=== PATIENT | male | born 1955 | race Caucasian/White ===

== ENCOUNTER 2020-05-30 23:33 | Inpatient (IN) | payer MEDICARE, BC, SELFPAY ==
--- NOTE | 2020-05-30 23:30 | DI.CT_ITS ---
EXAM: CT ABDOMEN PELVIS W CLINICAL HISTORY: gi bleed TECHNIQUE: Imaging Protocol: Axial computed tomography images with coronal and sagittal reformatted images were created and reviewed CONTRAST MATERIAL: Intravenous: Omnipaque 350 Contrast volume:100 mL Oral: No COMPARISON: No exams were available for comparison FINDINGS: ABDOMEN: Lung Bases: There is a large bulla in the right lung base. It measures 6.9 cm in diameter. There is a small hiatal hernia. Liver: Normal density. No measurable mass. Portal, Superior Mesenteric, and Splenic Veins: Unremarkable. Gallbladder and Biliary Tract: No radiodense calculus or dilation. Pancreas: Normal density, no abnormal calcifications or inflammatory process. Spleen: Normal. Adrenals: There are small bilateral adrenal nodules. The right adrenal nodule measures 1.2 cm. The left adrenal nodule also measures 1.2 cm. These likely reflect adenomas. Kidneys: Normal size, contour and axis. No radiodense stones or obstructive uropathy. There is a 1.3 cm simple cyst in the left kidney. No further workup is recommended. Abdominal Aorta: Abdominal portion non-dilated. Mild atherosclerosis. Bowel: No obstruction or bowel wall thickening. Appendix is unremarkable. There is diverticulosis see n in the descending and sigmoid colon. There is mild increased stranding in the pericolonic tissues at the junction of the descending and sigmoid colons. This may represent a mild acute diverticulitis . No abscess or free air. Peritoneal Cavity: No ascites, collection or mesenteric inflammatory response. No free air. Lymph Nodes: Within normal limits. Bones: Within normal limits for the patient's age. Soft Tissues: There are moderate size bilateral fat containing inguinal hernia. The most inferior im ages show fluid in the scrotal sacs likely reflecting bilateral hydroceles. PELVIS: Bladder: Incompletely distended. This limits evaluation of the urinary bladder. The apparent mild b ladder wall thickening may be due to incomplete distension versus chronic bladder outlet obstruction secondary to the enlarged prostate gland. Cystitis cannot be entirely excluded. Please correlate cl inically. Reproductive Organs: Enlarged prostate gland which impinges upon the base of the urinary bladder. Lymph Nodes: Within normal limits. Bones: Degenerative changes in the lumbar spine. IMPRESSION: 1. Diverticulosis of the descending and sigmoid colon. Mild increased stranding seen at the junction of the descending and sigmoid colons suggesting mild acute diverticulitis. No abscess or free air. 2. Enlarged prostate gland. RADIATION DOSE DELIVERED: 1,033.5mGy.cm Total DLP DATA REPOSITORY: All CT scans at this facility are submitted to the National Radiology Data Registry (NRDR) Dose Index Registry (DIR) with the [employer] (ACR). RADIATION OPTIMIZATION: All CT scans at this facility use at least one of these dose optimization te chniques: automated exposure control; mA and/or kV adjustment per patient size (includes targeted exa ms where dose is matched to clinical indication); or iterative reconstruction.
--- NOTE | 2020-05-30 23:52 | ED.GENADUL_ITS ---
Discharge Plan Disposition Patient Disposition: [facility] Condition: Good Discharge Details Chief Complaint: GI Bleed Clinical Impression: Acute GI bleeding Primary Care Provider: Puma Smallwood ED Provider: Baltazar Motley Home Meds and New Rx's Prescriptions: No Action No Known Home Meds RF: 0 Medical Decision Making 65-year-old male who denies any significant aside for what appears to be a colonoscopy back in 2016 which demonstrated mild colitis in the rectum itself. He presents today for GI bleeding. Patient states that over the last 3 days he has had daily episodes of bright red blood and slightly maroon-colored blood per rectum with bowel movements mild diarrhea. However this evening he felt notable turning and uneasiness in his lower abdomen, and then subsequently had 4-5 episodes of blood from his rectum. He denies any significant pain. He did feel notably lightheaded during this episode, and feels that he may have passed out. He did not hit his head though, he awoke sitting on the toilet, with no trauma. He does not take any blood thinners. He does admit to eating a fair bit of cranberries and beets as of late but feels that this is unrelated, as he stopped using those a few days ago and his symptoms of persist. Patient has no other complaints at this time. No other modifying factors. He has not seen a family doctor or doctor since his colonoscopy. Physical exam is unremarkable, no abdominal tenderness. Rectal exam shows no active bleeding. Patient is tachycardic, I am concerned at this time for sigmoid or rectal colitis causing the bleeding, potentially secondary to ulcerative colitis, but uncertain otherwise. Out of an abundance of precaution there is still concern for upper GI bleed, will start Protonix and famotidine, we will type and screen, start IV fluids, evaluate for need for PRBCs. Patient will need admission for screening colonoscopy and observation. 1:27 AM Blood work is returned, white count of 21, hemoglobin stable at 14.4, mild left shift, PT PTT INR normal, lactate elevated at 2.9. Repeat exam continues to demonstrate no abdominal tenderness, symptoms clinically inconsistent with an ischemic gut picture at this time. Creatinine slightly up at 1.4, BUN 20, anion gap 11.7, EKG unremarkable. CT scan shows evidence of colitis, mild diverticulitis as well, suspect an infectious versus ulcerative etiology. Discussed the case with Dr. Crabtree, no indication for emergent surgical management at this time. We will start Zosyn, continue to rehydrate, blood pressure notably stable, heart rate improved after a liter of fluid. Patient will be admitted to the floor. I will place bridging orders. I have extensively reviewed the treatment plan with the patient. I have addressed all patient concerns at this time. I have also discussed the plan with the admitting physician and they agree with the current assessment and plan and have agreed to assume responsibility for the patient. All parties demonstrate verbal understanding and agreement with our assessment and plan at this time. The documentation in this chart was dictated using [employer] dictation software. Ple ase excuse any dictation errors. I did contact the patient's , Jan, and discussed the case with her. She agrees with assessment and plan. All questions answered. FINDINGS: Lungs: There is large pneumatocele within the right lung base. Lung bases otherwise clear. Mediastinal space: There is small hiatal hernia. Liver: Unremarkable. No mass. Gallbladder and bile ducts: Unremarkable. No calcified stones. No ductal dilation. Pancreas: Unremarkable. No ductal dilation. Spleen: Unremarkable. No splenomegaly. Adrenal glands: Slight thickening of the adrenal glands without discrete nodule or mass. Kidneys and ureters: Within the inferior interpolar region of the left kidney there is exophytic 1.2 cm hypodensity with simple fluid attenuation consistent with simple cyst. Subcentimeter hypodensity within the left renal midpole is too small to characterize, statistically most likely additional cyst, no imaging follow-up necessary. No hydronephrosis. Ureters are normal in course and caliber. Stomach and bowel: There is attenuating debris within the stomach, correlate with recent ingestion, with air debris level in the stomach which is mildly distended. There is mild diverticulosis of the left hemicolon. There is segment of colonic mural thickening involving the proximal sigmoid colon with mild pericolonic inflammatory stranding. No significant pericolonic fluid collection. No focal mural thickening of the right hemicolon with few scattered colonic air-fluid levels, possibly representing colonic ileus or diarrheal illness. No bowel obstruction. No focal abnormality of the small bowel. Appendix: Within normal limits. Intraperitoneal space: No free air. No significant fluid collection. Vasculature: There are mild scattered atherosclerotic calcifications of the abdominal aorta and its major branches, no abdominal aortic aneurysm. Lymph nodes: No pathologically enlarged lymph nodes. Urinary bladder: Bladder is incompletely distended mildly limiting evaluation with mild diffuse bladder wall thickening. Reproductive: Prostate gland is enlarged measuring approximately 6.2 cm transverse by 4.8 cm AP. Bones/joints: Mild degenerative changes of the lower lumbar spine. No acute fracture. Soft tissues: There are small to moderate bilateral fat containing inguinal hernias. IMPRESSION: 1. Mild diverticulosis of the left hemicolon with segment of colonic mural thickening and pericolonic inflammatory stranding involving the proximal sigmoid colon. Correlate clinically for symptoms of acute colitis/diverticulitis. 2. Prostatomegaly. 3. Bladder is incompletely distended mildly limiting evaluation with mild diffuse bladder wall thickening. May represent changes of underdistention versus chronic bladder outlet obstruction versus cystitis. Correlate clinically. Thank you for allowing us to participate in the care of your patient. Dictated and Authenticated by: Harry Hawk MD 05/31/2020 12:47 AM Eastern Time ([place] & [place]) HPI General Date/Time Provider Initiated Documentation: 05/30/20 23:37 . HPI Narrative: 65-year-old male who denies any significant aside for what appears to be a colonoscopy back in 2015 which demonstrated mild colitis in the rectum itself. He presents today for GI bleeding. Patient states that over the last 3 days he has had daily episodes of bright red blood and slightly maroon-colored blood per rectum with bowel movements mild diarrhea. However this evening he felt notable turning and uneasiness in his lower abdomen, and then subsequently had 4-5 episodes of blood from his rectum. He denies any significant pain. He did feel notably lightheaded during this episode, and feels that he may have passed out. He did not hit his head though, he awoke sitting on the toilet, with no trauma. He does not take any blood thinners. He does admit to eating a fair bit of cranberries and beets as of late but feels t hat this is unrelated, as he stopped using those a few days ago and his symptoms of persist. Patient has no other complaints at this time. No other modifying factors. He has not seen a family doctor or doctor since his colonoscopy. Related Data Home Medications Medication Instructions Recorded Confirmed Unknown [No Known Home Meds] 05/31/20 05/31/20 Allergies Allergy/AdvReac Type Severity Reaction Status Date / Time codeine AdvReac Mild headache Unverified 04/17/16 11:41 Review of Systems All systems reviewed & are unremarkable except as noted in HPI and below PFSH Medical History Hematochezia Hypertension not currently on medications Tobacco use quite in 2012 Surgical History Colonoscopy - IV Sedation (04/17/16) Social History Smoking/Tobacco Use Status: Former Tobacco Use Smoking risk assessment performed?: Yes Alcohol Intake: current Alcohol Intake frequency: holidays/special occasions only Drug use: Never Substance use type: does not use Do you feel safe at home: Yes Do you feel safe in your relationship?: Yes Exam Narrative Exam Narrative: 1.Const: Well-nourished, Well-developed, appearing stated age 2.Eyes: PERRL, no conjunctival injection, and symmetrical lids. 3.ENT: Atraumatic external nose and ears. Moist MM. Neck: Symmetric, trachea midline, No thyromegaly. 4.CVS: +S1/S2, No murmurs or gallops. Peripheral pulses 2+ and equal in all extremities. Brisk capillary refill in all extremities. 5.RESP: Unlabored respiratory effort. Clear to auscultation bilaterally. No wheezes rales or rhonchi 6.GI: Soft, Nontender/Nondistended, No hepatosplenomegaly. No guarding or rebound. No pain in the lower abdominal regions. No signs of an acute surgical abdomen. 7.MSK: Normocephalic/Atraumatic, Extremities w/o deformity or ttp No cyanosis or clubbing, Normal movement of all extremities 8.Skin: Warm, Dry. No rashes or lesions. 9.Neuro: liquid floor and wall applier II-XII grossly intact. Sensation grossly intact, no focal neurologic deficits. 10.Psych: (AAO) x3. Appropriate mood and affect
[2020-05-31] VITALS (14 sets, daily range): BP systolic 134–166; BP diastolic 81–116; PULSE 75–122; RESP 15–18; TEMP 35.7–36.7; O2SAT 95–99
--- NOTE | 2020-05-31 | RT.EKG_ITS ---
APPROVED REPORT Exam: Resting ECG Patient Location: E HR:104 bpm ECG Measurements Heart Rate 104 AXIS AK 135 P 55 QRSd 86 QRS -38 QT 330 T 22 QTc 433 Conclusion Sinus tachycardia...rate> 99 Left axis deviation...QRS axis (-30,-90) I have reviewed and interpreted ECG and agree with software generated interpretation.
[2020-05-31] MEDS: Omnipaque 350 MG/ML 100 ML BTL IV (00:09)
[2020-05-31 00:11] LABS: Abs Immature Grans 0.13 10^3/uL (0.0-0.06); Absolute Basophil Count 0.08 10^3/uL (0.0-0.2); Absolute Lymphocyte Count 2.57 10^3/uL (1.2-3.4); Basophils % 0.4; Eosinophils % 0.6; HCT 44.3 % (40.0-50.0); HGB 14.4 g/dL (13.5-17.5); Immature Grans % 0.6; Lymphocytes % 12.1; MCH 30.6 pg (27.0-33.0); MCHC 32.5 % (32.0-36.0); MCV 94.1 fL (80-95); MPV 9.5 fL (8.0-11.0); Monocytes % 5.2; Neutrophils % 81.1; Nucleated RBC 0 %; Platelet Count 362 10^3/uL (130-400); RBC 4.71 10^6/uL (4.36-5.78); RDW 12.8 % (11.8-14.1); RDW-SD 44.4 fL; WBC 21.21 10^3/uL (4.4-10.8)
[2020-05-31] MEDS: Normal Saline - Diluent 50 ML VIAL IV (00:11)
[2020-05-31] MEDS: Normal Saline Flush 10 ML SYR IVP ×2 (00:12→08:22)
[2020-05-31 00:19] LABS: Absolute Eosinophil Count 0.13 10^3/uL (0.0-0.7)
[2020-05-31 00:21] LABS: Lactate 2.9 mmol/L (0.6-1.4)
[2020-05-31 00:24] LABS: INR 1.1 (0.9-1.1); PTT Activated 24.7 sec (21.0-27.5)
[2020-05-31] MEDS: FAMOTIDINE 20 MG/50 ML BAG 100 MG IVPB (00:29)
[2020-05-31] MEDS: Pantoprazole 40 MG VIAL 80 MG IVP (00:29)
[2020-05-31] MEDS: Normal Saline 1,000 ML 1000 ML IV (00:29)
--- NOTE | 2020-05-31 00:35 | NUR.NOTE ---
Nirali Montoya cell [phone]
[2020-05-31 00:48] LABS: ALT 19 U/L (16-63); AST 10 U/L (15-37); Albumin 3.3 g/dL (3.4-5.0); Alkaline Phosphatase 64 U/L (46-116); Anion Gap 11.7 mmol/L (3-11); BUN 20 mg/dL (7-18); Bilirubin, Total 0.3 mg/dL (0.2-1.0); CO2 26.3 mmol/L (21.0-32.0); CREATININE 1.4 mg/dL (0.70-1.30); Chloride 104 mmol/L (98-107); Estimated GFR 50.86 (mL/min/1.73m2); Glucose 195 mg/dL (74-106); Potassium 3.6 mmol/L (3.5-5.1); Sodium 142 mmol/L (136-145); Total Protein 7.1 g/dL (6.4-8.2)
--- NOTE | 2020-05-31 00:48 | DI.VRAD_ITS ---
PROCEDURE INFORMATION: Exam: CT Abdomen And Pelvis With Contrast Exam date and time: 05/30/2020 11:46 PM Age: 65 years old Clinical indication: Patient HX: Gi bleed for 2days and diarrhea TECHNIQUE: Imaging protocol: Computed tomography of the abdomen and pelvis with contrast. Radiation optimization: All CT scans at this facility use at least one of these dose optimization techniques: automated exposure control; mA and/or kV adjustment per patient size (includes targeted exams where dose is matched to clinical indication); or iterative reconstruction. Contrast material: OMNIPAQUE 350; Contrast volume: 100 ml; Contrast route: INTRAVENOUS (IV); COMPARISON: No relevant prior studies available. FINDINGS: Lungs: There is large pneumatocele within the right lung base. Lung bases otherwise clear. Mediastinal space: There is small hiatal hernia. Liver: Unremarkable. No mass. Gallbladder and bile ducts: Unremarkable. No calcified stones. No ductal dilation. Pancreas: Unremarkable. No ductal dilation. Spleen: Unremarkable. No splenomegaly. Adrenal glands: Slight thickening of the adrenal glands without discrete nodule or mass. Kidneys and ureters: Within the inferior interpolar region of the left kidney there is exophytic 1.2 cm hypodensity with simple fluid attenuation consistent with simple cyst. Subcentimeter hypodensity within the left renal midpole is too small to characterize, statistically most likely additional cyst, no imaging follow-up necessary. No hydronephrosis. Ureters are normal in course and caliber. Stomach and bowel: There is attenuating debris within the stomach, correlate with recent ingestion, with air debris level in the stomach which is mildly distended. There is mild diverticulosis of the left hemicolon. There is segment of colonic mural thickening involving the proximal sigmoid colon with mild pericolonic inflammatory stranding. No significant pericolonic fluid collection. No focal mural thickening of the right hemicolon with few scattered colonic air-fluid levels, possibly representing colonic ileus or diarrheal illness. No bowel obstruction. No focal abnormality of the small bowel. Appendix: Within normal limits. Intraperitoneal space: No free air. No significant fluid collection. Vasculature: There are mild scattered atherosclerotic calcifications of the abdominal aorta and its major branches, no abdominal aortic aneurysm. Lymph nodes: No pathologically enlarged lymph nodes. Urinary bladder: Bladder is incompletely distended mildly limiting evaluation with mild diffuse bladder wall thickening. Reproductive: Prostate gland is enlarged measuring approximately 6.2 cm transverse by 4.8 cm AP. Bones/joints: Mild degenerative changes of the lower lumbar spine. No acute fracture. Soft tissues: There are small to moderate bilateral fat containing inguinal hernias. IMPRESSION: 1. Mild diverticulosis of the left hemicolon with segment of colonic mural thickening and pericolonic inflammatory stranding involving the proximal sigmoid colon. Correlate clinically for symptoms of acute colitis/diverticulitis. 2. Prostatomegaly. 3. Bladder is incompletely distended mildly limiting evaluation with mild diffuse bladder wall thickening. May represent changes of underdistention versus chronic bladder outlet obstruction versus cystitis. Correlate clinically. Dictated and Authenticated by: Harry Hawk MD. Ordering:FLAKITO Ledesma MD
[2020-05-31 01:03] LABS: Source Nasopharynx
[2020-05-31] MEDS: PIPERACILLIN/TAZO 3.375 GM in Normal Saline 50 ML IVPB ×4 (01:22→23:49)
[2020-05-31] MEDS: PANTOPRAZOLE 80 MG in Normal Saline 100 ML 10 MG IV ×2 (01:22→12:34)
[2020-05-31 01:43] LABS: Influenza A PCR Negative (Negative); Influenza B PCR Negative (Negative); RSV PCR Negative (Negative)
[2020-05-31 01:46] LABS: COVID-19 PCR Negative (Negative)
[2020-05-31 06:53] LABS: Bilirubin Negative (Negative); Blood Trace-lysed (Negative); Clarity Clear (Clear); Glucose Negative (Negative); Ketones Negative (Negative); Leukocyte Esterase Negative (Negative); Nitrite Negative (Negative); Urobilinogen 0.2 EU/dL (Up TO 0.2)
[2020-05-31] MEDS: Lactated Ringers 1,000 ML 80 ML IV ×2 (06:55→19:17)
[2020-05-31 06:57] LABS: Abs Immature Grans 0.07 10^3/uL (0.0-0.06); Absolute Basophil Count 0.05 10^3/uL (0.0-0.2); Absolute Eosinophil Count 0.03 10^3/uL (0.0-0.7); Absolute Lymphocyte Count 1.09 10^3/uL (1.2-3.4); Absolute Monocyte Count 0.96 10^3/uL (0.1-0.8); Basophils % 0.4; Eosinophils % 0.2; HCT 37.9 % (40.0-50.0); HGB 12.8 g/dL (13.5-17.5); Immature Grans % 0.5; Lymphocytes % 8.1; MCH 30.8 pg (27.0-33.0); MCHC 33.8 % (32.0-36.0); MCV 91.3 fL (80-95); MPV 9.3 fL (8.0-11.0); Monocytes % 7.2; Neutrophils % 83.6; Nucleated RBC 0 %; Platelet Count 288 10^3/uL (130-400); RBC 4.15 10^6/uL (4.36-5.78); RDW 12.9 % (11.8-14.1); RDW-SD 42.9 fL
[2020-05-31 07:12] LABS: Anion Gap 10.1 mmol/L (3-11); BUN 17 mg/dL (7-18); CO2 22.9 mmol/L (21.0-32.0); CREATININE 1.1 mg/dL (0.70-1.30); Calcium 8.5 mg/dL (8.5-10.1); Chloride 107 mmol/L (98-107); Glucose 157 mg/dL (74-106); Sodium 140 mmol/L (136-145)
[2020-05-31 07:15] LABS: Bacteria Negative HPF (Negative); C & S Indicated? No; Casts Negative LPF (Negative); Crystals Negative HPF (Negative); Epithelial Cells Negative HPF (Negative); Mucus Trace (Negative); Other Cells Few Renal (Negative); WBC Negative HPF (0-5)
[2020-05-31] MEDS: Normal Saline 500 ML 12.5 ML IVPB (08:23)
--- NOTE | 2020-05-31 08:48 | HPE_ITS ---
Date of service: 05/31/20 Time of Service: 08:48 Assessment and Plan Assessment and plan (1) Acute GI bleeding: Status: Acute Assessment and plan: Patient denies any pain, bowel movements or rectal bleeding since his admission. Will continue to be NPO Will continue with IV hydration, Protonix and Antibiotics. Hgb decreased from 14.4 to 12.8 g/dL this morning. Will continue to monitor. Possible Colonoscopy during this in-patient stay. If he remains stable may consider performing colonoscopy as out-patient. History of Present Illness History of Present Illness Chief Complaint: GI Bleed Narrative: 65 y/o male presented to the ER with complaints of a 3-4 day history of bright red blood per his rectum, lower abdominal pain and diarrhea. He states that he may have fainted while having a BM at home prior to coming into the ER. Since his admission late last night, he denies any bowel movements or rectal bleeding. On Rectal exam in the ER, no blood or source of bleeding was identified. Patient denies any chest pain or dyspnea this morning. CT scan showed question of acute colitis vs. diverticulitis. [facility] Medical History Hematochezia Hypertension not currently on medications Tobacco use quite in 2012 Surgical History Colonoscopy - IV Sedation (04/17/16) Social History Smoking/Tobacco Use Status: Former Tobacco Use Smoking risk assessment performed?: Yes Alcohol Intake: current Alcohol Intake frequency: holidays/special occasions only Drug use: Never Substance use type: does not use Do you feel safe at home: Yes Do you feel safe in your relationship?: Yes Meds Home Medications and Allergies Home Medications Medication Instructions Recorded Confirmed Type Unknown [No Known Home Meds] 05/31/20 05/31/20 History Allergies Allergy/AdvReac Type Severity Reaction Status Date / Time codeine AdvReac Mild headache Unverified 04/17/16 11:41 Exam Const General: cooperative, healthy appearing, comfortable and no acute distress Resp Effort & Inspection: normal respiratory effort, no audible wheezes and no cough GI Inspection: normal to inspection and non-distended Palpation: soft, not firm, no guarding and nontender Results Labs Result diagrams: 05/31/20 06:45 05/31/20 06:45 Labs: Laboratory Results - last 24 hr 05/30/20 05/30/20 05/30/20 23:45 23:45 23:45 WBC 21.21 H RBC 4.71 Hgb 14.4 Hct 44.3 MCV 94.1 MCH 30.6 MCHC 32.5 RDW 12.8 Plt Count 362 MPV 9.5 Immature Gran % 0.6 Neutrophils % 81.1 Lymphocytes % 12.1 Monocytes % 5.2 Eosinophils % 0.6 Basophils % 0.4 Nucleated RBC % 0 Absolute Neutrophils 17.20 H Absolute Lymphocytes 2.57 Absolute Monocytes 1.10 H Absolute Eosinophils 0.13 Absolute Basophils 0.08 PT INR APTT VBG Lactate 2.9 H* Sodium 142 Potassium 3.6 Chloride 104 Carbon Dioxide 26.3 Anion Gap 11.7 H BUN 20 H Creatinine 1.4 H Estimated GFR/1.73 m2 50.86 Glucose 195 H Calcium 9.0 Total Bilirubin 0.3 AST 10 L ALT 19 Alkaline Phosphatase 64 C-Reactive Protein Total Protein 7.1 Albumin 3.3 L Urine Color Urine Clarity Urine pH Ur Specific [place] Urine Protein Urine Ketones Urine Blood Urine Nitrite Urine Bilirubin Urine Urobilinogen Ur Leukocyte Esterase Urine RBC Urine WBC Ur Epithelial Cells Urine Crystals Urine Bacteria Urine Casts Urine Mucus Urine Other Ur Culture Indicated? Urine Glucose COVID-19 Source SARS-CoV-2 (PCR) Influenza Type A (PCR) Influenza Type B (PCR) RSV (PCR) Patient ABO/Rh Antibody Screen 05/30/20 05/30/20 05/30/20 23:45 23:45 23:45 WBC RBC Hgb Hct MCV MCH MCHC RDW Plt Count MPV Immature Gran % Neutrophils % Lymphocytes % Monocytes % Eosinophils % Basophils % Nucleated RBC % Absolute Neutrophils Absolute Lymphocytes Absolute Monocytes Absolute Eosinophils Absolute Basophils PT 11.0 INR 1.1 APTT 24.7 VBG Lactate Sodium Potassium Chloride Carbon Dioxide Anion Gap BUN Creatinine Estimated GFR/1.73 m2 Glucose Calcium Total Bilirubin AST ALT Alkaline Phosphatase C-Reactive Protein 0.10 Total Protein Albumin Urine Color Urine Clarity Urine pH Ur Specific [place] Urine Protein Urine Ketones Urine Blood Urine Nitrite Urine Bilirubin Urine Urobilinogen Ur Leukocyte Esterase Urine RBC Urine WBC Ur Epithelial Cells Urine Crystals Urine Bacteria Urine Casts Urine Mucus Urine Other Ur Culture Indicated? Urine Glucose COVID-19 Source SARS-CoV-2 (PCR) Influenza Type A (PCR) Influenza Type B (PCR) RSV (PCR) Patient ABO/Rh O Positive Antibody Screen Negative 05/31/20 05/31/20 05/31/20 00:50 06:15 06:45 WBC RBC Hgb Hct MCV MCH MCHC RDW Plt Count MPV Immature Gran % Neutrophils % Lymphocytes % Monocytes % Eosinophils % Basophils % Nucleated RBC % Absolute Neutrophils Absolute Lymphocytes Absolute Monocytes Absolute Eosinophils Absolute Basophils PT INR APTT VBG Lactate Sodium 140 Potassium 4.0 Chloride 107 Carbon Dioxide 22.9 Anion Gap 10.1 BUN 17 Creatinine 1.1 Estimated GFR/1.73 m2 >= 60.00 Glucose 157 H Calcium 8.5 Total Bilirubin AST ALT Alkaline Phosphatase C-Reactive Protein Total Protein Albumin Urine Color Yellow Urine Clarity Clear Urine pH 5.0 Ur Specific [place] 1.020 Urine Protein Negative Urine Ketones Negative Urine Blood Trace-lysed H Urine Nitrite Negative Urine Bilirubin Negative Urine Urobilinogen 0.2 Ur Leukocyte Esterase Negative Urine RBC 3-5 H Urine WBC Negative Ur Epithelial Cells Negative Urine Crystals Negative Urine Bacteria Negative Urine Casts Negative Urine Mucus Trace Urine Other Few renal Ur Culture Indicated? No Urine Glucose Negative COVID-19 Source Nasopharynx SARS-CoV-2 (PCR) Negative Influenza Type A (PCR) Negative Influenza Type B (PCR) Negative RSV (PCR) Negative Patient ABO/Rh Antibody Screen 05/31/20 06:45 WBC 13.40 H D RBC 4.15 L Hgb 12.8 L Hct 37.9 L MCV 91.3 MCH 30.8 MCHC 33.8 RDW 12.9 Plt Count 288 MPV 9.3 Immature Gran % 0.5 Neutrophils % 83.6 Lymphocytes % 8.1 Monocytes % 7.2 Eosinophils % 0.2 Basophils % 0.4 Nucleated RBC % 0 Absolute Neutrophils 11.20 H Absolute Lymphocytes 1.09 L Absolute Monocytes 0.96 H Absolute Eosinophils 0.03 Absolute Basophils 0.05 PT INR APTT VBG Lactate Sodium Potassium Chloride Carbon Dioxide Anion Gap BUN Creatinine Estimated GFR/1.73 m2 Glucose Calcium Total Bilirubin AST ALT Alkaline Phosphatase C-Reactive Protein Total Protein Albumin Urine Color Urine Clarity Urine pH Ur Specific [place] Urine Protein Urine Ketones Urine Blood Urine Nitrite Urine Bilirubin Urine Urobilinogen Ur Leukocyte Esterase Urine RBC Urine WBC Ur Epithelial Cells Urine Crystals Urine Bacteria Urine Casts Urine Mucus Urine Other Ur Culture Indicated? Urine Glucose COVID-19 Source SARS-CoV-2 (PCR) Influenza Type A (PCR) Influenza Type B (PCR) RSV (PCR) Patient ABO/Rh Antibody Screen Last Vital Signs Temp 36.1 C L 05/31/20 07:43 Pulse 75 05/31/20 07:43 Resp 17 05/31/20 07:43 BP 163/88 H 05/31/20 07:43 Pulse Ox 97 05/31/20 07:43 COVID-19 Screening Have you, or household traveled for leisure in last 14 days?: No Had IN PERSON contact w/suspected or confirmed C-19 person: No
--- NOTE | 2020-05-31 10:33 | PDOC.CMIN ---
- If Service Date Differs Date of service: 05/31/20 Time of Service: 10:33 Care Management Initial Assess REASON FOR HOSPITALIZATION:: Acute GI Bleed PAST MEDICAL HISTORY/PAST SURGICAL HISTORY:: Medical History . Hematochezia. Hypertension. not currently on medications. Tobacco use. quite in 2012. Surgical History . Colonoscopy - IV Sedation (04/17/16) PREVIOUS FUNCTIONAL STATUS/SOCIAL/FAMILY SUPPORTS:: Donta lives in [place], [place] with his Jan. They have grownchildren who are supportive. he is independent at baseline. Donta shared that he has never been in the hospital before and he is hoping to be discharged as soon as possible. He receives no community services and requires no ambulatory assistive devices. CURRENT FUNCTIONAL STATUS:: Donta was sitting up in a chair when CM met with him. He was pleasant but expressed a desire to go home. He shared that this is his first hospitalization and although everyone has been nice, he would prefer to be home. ADVANCE DIRECTIVES:: none on file Has patient been provided with info about the portal/API?: Yes Did the patient sign up for the portal?: No CODE STATUS:: Full Code INSURANCE COVERAGE / FINANCIAL ISSUES:: Medicare. BS CURRENT HOME/COMMUNITY SERVICES/EQUIPMENT:: none PRIMARY CARE PHYSICIAN:: Puma Smallwood POTENTIAL DISCHARGE NEEDS:: Folllow up with surgeon, PCP and discharge plan of care PATIENT/FAMILY EDUCATION NEEDS:: Discharge plan, limitations, self care, Ask Me Three TRANSPORTATION:: via private vehicle with family PLAN:: Donta will be discharged home with no new services. He will follow up with his PCP and discharge plan of care. Donta will transport home with family. CM will continue to suppport Donta and his family and assess for discharge needs.
[2020-05-31 10:49] LABS: ALT 17 U/L (16-63); AST 11 U/L (15-37); Albumin 3.3 g/dL (3.4-5.0); Alkaline Phosphatase 54 U/L (46-116); Anion Gap 9.3 mmol/L (3-11); BUN 16 mg/dL (7-18); Bilirubin, Total 0.5 mg/dL (0.2-1.0); CO2 24.7 mmol/L (21.0-32.0); Calcium 8.7 mg/dL (8.5-10.1); Chloride 107 mmol/L (98-107); Glucose 108 mg/dL (74-106); Potassium 4.1 mmol/L (3.5-5.1); Sodium 141 mmol/L (136-145); Total Protein 7.1 g/dL (6.4-8.2)
[2020-05-31 10:53] LABS: Iron 91 ug/dL (65-175); Total Iron Binding Capacity 265 ug/dL (250-450); Transferrin Sat 34 % (20-55)
--- NOTE | 2020-05-31 15:13 | CHAPLAIN ---
Donta came through the ED last night and said he hasn't been able to sleep since. He hopes to be discharged today. He's been in touch with his by phone. He said he feels ok, but is bored.
[2020-06-01 03:22] VITALS: BP 148/83; PULSE 71; RESP 20; TEMP 36.5; O2SAT 98
[2020-06-01] MEDS: Lactated Ringers 1,000 ML 80 ML IV (06:58)
[2020-06-01 07:30] VITALS: PULSE 74
[2020-06-01 07:38] VITALS: BP 145/90; PULSE 81; RESP 17; TEMP 36.8; O2SAT 96
[2020-06-01] MEDS: PIPERACILLIN/TAZO 3.375 GM in Normal Saline 50 ML IVPB (07:56)
[2020-06-01] MEDS: PANTOPRAZOLE 80 MG in Normal Saline 100 ML 10 MG IV (07:56)
[2020-06-01 08:24] LABS: Abs Immature Grans 0.03 10^3/uL (0.0-0.06); Absolute Basophil Count 0.07 10^3/uL (0.0-0.2); Absolute Eosinophil Count 0.19 10^3/uL (0.0-0.7); Absolute Lymphocyte Count 1.61 10^3/uL (1.2-3.4); Absolute Monocyte Count 0.79 10^3/uL (0.1-0.8); Basophils % 0.8; Eosinophils % 2.2; HCT 37.3 % (40.0-50.0); HGB 12.3 g/dL (13.5-17.5); Immature Grans % 0.3; Lymphocytes % 18.7; MCH 30.7 pg (27.0-33.0); MPV 9.3 fL (8.0-11.0); Monocytes % 9.2; Neutrophils % 68.8; Nucleated RBC 0 %; Platelet Count 292 10^3/uL (130-400); RBC 4.01 10^6/uL (4.36-5.78); RDW-SD 44.3 fL
[2020-06-01 08:26] LABS: Absolute Neutrophil Count 5.92 10^3/uL (1.2-6.7)
--- NOTE | 2020-06-01 08:59 | W.PM.PROGNOT ---
Date of Service Date of service: 06/01/20 Time of Service: 08:59 Assessment and Plan Assessment and plan (1) Acute GI bleeding: Status: Acute Assessment and plan: No further bleeding. Pt can be discharged and will have a follow up appt for an outpatient colonoscopy Subjective Subjective Patient reports: feels better Interval history since last seen: has not had a bm since admission and tolerating diet. Exam Narrative Exam Narrative: hypodermically stable since admit GI Inspection: normal to inspection Palpation: soft Objective Last Vital Signs Temp 98.2 F 06/01/20 07:38 Pulse 81 06/01/20 07:38 Resp 17 06/01/20 07:38 BP 145/90 H 06/01/20 07:38 Pulse Ox 96 06/01/20 07:38 Laboratory Results - last 24 hr 05/31/20 05/31/20 06/01/20 10:15 10:15 08:15 WBC 8.60 D RBC 4.01 L Hgb 12.3 L Hct 37.3 L MCV 93.0 MCH 30.7 MCHC 33.0 RDW 13.0 Plt Count 292 MPV 9.3 Immature Gran % 0.3 Neutrophils % 68.8 Lymphocytes % 18.7 Monocytes % 9.2 Eosinophils % 2.2 Basophils % 0.8 Nucleated RBC % 0 Absolute Neutrophils 5.92 Absolute Lymphocytes 1.61 Absolute Monocytes 0.79 Absolute Eosinophils 0.19 Absolute Basophils 0.07 Sodium 141 Potassium 4.1 Chloride 107 Carbon Dioxide 24.7 Anion Gap 9.3 BUN 16 Creatinine 1.0 Estimated GFR/1.73 m2 >= 60.00 Glucose 108 H Calcium 8.7 Iron 91 TIBC 265 Transferrin % Sat 34 Total Bilirubin 0.5 AST 11 L ALT 17 Alkaline Phosphatase 54 Total Protein 7.1 Albumin 3.3 L
--- NOTE | 2020-06-01 11:09 | PDOC.CMDIS ---
- If Service Date Differs Date of service: 06/01/20 Time of Service: 11:09 LACE Index Scoring Tool - Questions: Length of Stay (in days): 1 Acuity (Admit via E.D.?): Yes E.D. Visits: 1 - Answers: Total Score: 5 Risk of Readmission: Low Risk Care Management Discharge Reason for Hospitalization: Acute GI Bleed Discharge Plan: Donta will be discharged home with no new services. He will follow up with his PCP and discharge plan of care. Donta will transport home with family. Patient/Family Education Needs: Discharge plan, limitations, self care, Ask Me Three
== END 2020-06-01 11:32 | disposition home or self-care (01) | DRG 379 ==
LOC: ER 05-31 01:43 → MS 05-31 01:50
PROVIDERS: Surgery; Admitting Provider Surgery; Emergency Provider Student in an Organized Health Care Education/Training Program; PCP Internal Medicine; Visit Provider Surgery
DX: K92.1 Melena (principal); I10 Essential (primary) hypertension; Z87.891 Personal history of nicotine dependence
CPT/HCPCS: 36415; 80048; 80053; 86850; 86900; 86901; 93005; 96361; 96365; 96375; 99222; 99231; 99285; 74177; 81003; 81015; 83540; 83550; 83605; 85025; 85610; 85730; 86140; 93010; J2543; J3490

== ENCOUNTER 2020-06-09 14:47 | Outpatient (REF) | payer MEDICARE, BC, SELFPAY ==
[2020-06-09 21:06] LABS: HCT 38.2 % (40.0-50.0); HGB 12.6 g/dL (13.5-17.5)
[2020-06-12 09:27] LABS: PSA, Screening 2.5 ng/mL (0.0-4.5)
== END 2020-06-09 14:48 | disposition home or self-care (01) ==
LOC: NCHCN 14:47
PROVIDERS: PCP Internal Medicine; Visit Provider Internal Medicine
DX: Z87.19 Personal history of other diseases of the digestive system (principal); N40.0 Benign prostatic hyperplasia without lower urinary tract symptoms
CPT/HCPCS: 84153; 85014; 85018

== ENCOUNTER → 2020-06-12 11:25 | Outpatient (BNVA) | payer MEDICARE, BC, SELFPAY | PROVIDERS: PCP Internal Medicine; Referring Provider Internal Medicine; Visit Provider Surgery | DX: K57.31 Diverticulosis of large intestine without perforation or abscess with bleeding (principal); I10 Essential (primary) hypertension; N40.1 Benign prostatic hyperplasia with lower urinary tract symptoms | CPT/HCPCS: 99212; 99214 ==

== ENCOUNTER 2020-07-21 01:45 | Outpatient (CLI) | payer MEDICARE, BC, SELFPAY ==
[2020-07-21 09:15] LABS: Source Nasal/Nares
[2020-07-21 12:34] LABS: COVID-19 PCR Negative (Negative)
== END 2020-07-21 01:46 | disposition home or self-care (01) ==
LOC: LBO 01:45
PROVIDERS: PCP Internal Medicine; Visit Provider Surgery
DX: Z20.822 Contact with and (suspected) exposure to COVID-19 (principal); Z01.818 Encounter for other preprocedural examination
CPT/HCPCS: 87635; U0003

== ENCOUNTER 2020-07-25 09:25 | Day surgery (SDC) | payer MEDICARE, BC, SELFPAY ==
--- NOTE | 2020-07-24 12:55 | BOWEL_PTH ---
PATIENT: Donta Macario LOC: [facility] U#:[id number] AGE/SX: 65/M ROOM: RE07/25/[address]: Rosa Crabtree : 1955 BED: DIS: 07/25/2020 SPEC #: [id number] RECD: 07/25/20 13:31 STATUS: BIANCA REThu #: [id number] KIRA: 07/24/20 12:[address]: Rosa Crabtree DEPT: Surgical Specimen RECD BY: Linda Kellogg ENTERED: 07/25/20 13:33 SP TYPE: Bowel OTHR DR: Puma Smallwood Tissues: 1 - BIOPSY BOWEL 2 - BIOPSY BOWEL 3 - BIOPSY BOWEL 4 - BIOPSY BOWEL Procedures: GROSS AND MICRO LEVEL 4 Comments: [id number]
--- NOTE | 2020-07-24 13:20 | HPE_ITS ---
Date of service: 07/25/20 Time of Service: 07:30 Assessment and Plan Assessment and plan (1) Anemia due to blood loss, acute: Status: Acute (2) Rectal bleeding: Status: Acute Assessment and plan: Rectal bleeding. His CBC at the time of discharge was 12.3. His CBC today is 12.6. He has a history of diverticular disease. He has a history of unspecified no nspecific colitis by biopsy in 2016. He is not currently on any blood thinners. He does need to have a repeat colonoscopy. He also needs to see his primary care and get his blood pressure under better control. If he is any significant repeat bleeding and passing clots bigger than the size of a fist he should return to the ER. Avoid aspirin or NSAIs, oil or vitamin E. Abstain from alcohol. Stop his vitamin C. And continue fiber daily. Plan:Colonscopy w/ MAC The patient will be scheduled by my office. The pt understands that they need to do a bowel prep and the importance of hydration during this. The patient understands there is a theoretical risk of renal failure. For healthy patients we use Gatorade/Miralax Prep. For anyone with renal concerns- GoLytely will be used. Plavix and coumadin will need to be held except in unusual circumstances. Patients in A. Fib do not need to be bridged with Lovenox or on CVA prophylaxis. A baby ASA can be continued but full dose ASA needs to be stopped for 10 days prior to the procedure. A complete H & P is required within 30 days of the procedure. MAC is used for the colonoscopy. Colonoscopy does not require antibiotics prophylaxis. Thank you for allowing me to participate in the care of this Patient. A copy of the Endoscopy report will be forwarded Risks: Informed consent is obtained for the procedural (explained in simple layman's terms that the pt and/or family could understand) explaining risks vs benefits and alternatives to the procedure and consequences if we do not do the procedure and need/rational for the procedure. Risks include but are not limited to: bleeding, infection, perforation of colon. This would necessitate emergency surgery to repair the damage w/ possible ostomy; and other associated complications w/ the required surgery. Also complications of anesthesia including aspiration, MT/CVA/. (3) BPH loc w urin obs/LUTS: Status: Acute (4) Tobacco use: Status: None (5) HTN (hypertension): Status: Chronic (6) Diverticulosis of colon with hemorrhage: Status: Acute (7) Acute GI bleeding: Status: Acute History of Present Illness Consults Consult date: 07/25/20 Narrative: Today he is doing well. He plated the bowel prep. What is coming out is just a clear yellow color. He denies any abdominal pain or cramping. He denies any chest pain or shortness of breath. He denies any fever chills or productive cough. His Covid was negative and he has had no Covid exposure. c/o mlild intermittant LLQ pain Since I saw him in the office there have been no changes in his health status or medications. He is not been any accidents or has been in the emergency department. All his questions are answered to his satisfaction today. He is stable to proceed with the proposed procedure today. From office 06/12 Last BP was 145/90 per pt. He is not on BP meds. Needs to get this under better control prior to any procedures. Needs CBC today Not on blood thinners or ASA at home. He was eating lots of cranberries. His Bowels are normally regular. he denies straining to go to the bathroom. He has started taking Metamucil daily once he got out of the hospital. He has Not as active as usually is, prior to hospitalization. He was having active bleeding at home prior to hospital. He passed out a home prior to coming into the hospital.. He was having constipation adn straining prior to this episode- he says this is unusual for him. He is not on any blood thinners. CT 05/31: MPRESSION: 1. Diverticulosis of the descending and sigmoid colon. Mild increased stranding seen at the junction of the descending and sigmoid colons suggesting mild acute diverticulitis. No abscess or free air. 2. Enlarged prostate gland. From hospital admission 05/31/20 Chief Complaint: GI Bleed Narrative: 65 y/o male presented to the ER with complaints of a 3-4 day history of bright red blood per his rectum, lower abdominal pain and diarrhea. He states that he may have fainted while having a BM at home prior to coming into the ER. Since his admission late last night, he denies any bowel movements or rectal bleeding. On Rectal exam in the ER, no blood or source of bleeding was identified. Patient denies any chest pain or dyspnea this morning. CT scan showed question of acute colitis vs. diverticulitis. Colonoscopy in 2015 Description of the Operative Procedure: After informed consent was obtained, the patient was taken to the endoscopy [facility] and placed in the left decubitus position. Monitors were applied and a time-out was done. The patient was then given Versed and fentanyl, and once comfortable, the scope was introduced and slowly advanced to the cecum without difficulty. The terminal ileum and appendiceal orifice were identified. The prep was adequate. The scope was then slowly retracted all the way to the midsigmoid and the sigmoid colon where he had inflammation and small ulcerations as well as diverticulosis. Multiple biopsies were done throughout the area of inflammation. In the proximal rectum there was an area that was again inflamed, didn't look like a polyp, but there was an ulceration so a biopsy was done as well. The scope was then retracted into the rectum. No internal hemorrhoids were noted. The scope was removed and the patient was woken up and taken back to Same Day Surgery in stable condition. Pathology showed mild nonspecific colitis. [facility] Medical History Anemia BPH (benign prostatic hyperplasia) Hematochezia Hypertension not currently on medications Tobacco use quite in 2012 Surgical History Colonoscopy - IV Sedation (04/17/16) Social History Smoking/Tobacco Use Status: Former Tobacco Use Smoking risk assessment performed?: Yes Alcohol Intake: current Alcohol Intake frequency: holidays/special occasions only Alcohol type: beer and hard liquor Drug use: Never Substance use type: does not use Do you feel safe at home: Yes Do you feel safe in your relationship?: Yes Meds Home Medications and Allergies Allergies Allergy/AdvReac Type Severity Reaction Status Date / Time codeine AdvReac Mild headache Unverified 07/25/20 09:29 Home Medications Medication Instructions Recorded Confirmed Type ascorbic acid (vitamin C) 500 mg 500 mg PO DAILY 06/12/20 07/25/20 History chewable tablet bisacodyl 5 mg tablet,delayed 5 mg PO ONCE #4 tab 06/12/20 Rx release magnesium 200 mg tablet 500 mg PO DAILY 06/12/20 07/25/20 History polyethylene glycol 3350 17 238 g PO ONCE #238 g 06/12/20 Rx gram/dose oral powder amlodipine 10 mg PO DAILY 07/24/20 07/25/20 History cholecalciferol (vitamin D3) 25 mcg PO DAILY 07/24/20 07/25/20 History [Vitamin D3] glucos sul [id number]-Mn 1 cap PO DAILY 07/24/20 07/25/20 History [Glucosamine Chondroitin] omega [id number]-fish oil [Fish Oil] 1 cap PO DAILY 07/24/20 07/25/20 History psyllium seed (sugar) [Metamucil 1 tsp PO BID 07/24/20 07/25/20 History (sugar)] spironolactone 50 mg PO DAILY 07/24/20 07/25/20 History zinc 50 mg PO DAILY 07/24/20 07/25/20 History Exam Narrative Exam Narrative: PHYSICAL EXAM GENERAL APPEARANCE: Alert, healthy appearance, oriented, in no acute distress SKIN: No rashes. No breakdown HYDRATION: Well hydrated HEAD, EYES, EARS, NECK, THROAT: Head is normocephalic, pupils equal, round, reactive to light and accommodation, ocular movement intact, sclera clear and no jaundice. Dentition intact. No sore throat. No jaw pain. No thrush NECK: Supple, Trachea midline. No JVD. LUNGS: normal respiration/nl chest excursion. Clear to auscultation B/l no R/R/W HEART: Regular rate and rhythm, EXTREMITY: No edema or cyanosis no leg pain, redness, swelling. No IV infiltration ABDOMEN: non tender to palpation, no masses or distention, no hernias. Normal bowel sounds NEURO: no focal neuro deficits. COVID-19 Screening Have you, or household traveled for leisure in last 14 days?: No Had IN PERSON contact w/suspected or confirmed C-19 person: No
[2020-07-25 09:30] VITALS: BP 160/110; PULSE 98; RESP 20; TEMP 36.3; O2SAT 99
[2020-07-25] MEDS: Lactated Ringers 1,000 ML 80 ML IV (10:15)
--- NOTE | 2020-07-25 13:22 | W.PM.DSUDISC ---
Discharge Plan Disposition Patient Disposition: HOME Condition: Good Discharge Details Reason For Visit: colon scope Attending Provider: Rosa Crabtree Primary Care Provider: Puma Smallwood Home Meds and New Rx's Prescriptions: Continued magnesium 200 mg tablet 500 mg PO DAILY RF: 0 Fish Oil 100-160-1,000 mg Capsule 1 cap PO DAILY RF: 0 Glucosamine Chondroitin 550-30-1 mg Capsule 1 cap PO DAILY RF: 0 amlodipine 10 mg Tablet 10 mg PO DAILY RF: 0 spironolactone 50 mg Tablet 50 mg PO DAILY RF: 0 cholecalciferol (vitamin D3) [Vitamin D3] 25 mcg (1,000 unit) Capsule 25 mcg PO DAILY RF: 0 Metamucil (sugar) Powder 1 tsp PO BID RF: 0 zinc 50 mg Capsule 50 mg PO DAILY RF: 0 Discontinued ascorbic acid (vitamin C) 500 mg tablet,chewable 500 mg PO DAILY RF: 0 polyethylene glycol 3350 17 gram/dose powder 238 g PO ONCE Qty: 238 RF: 0 bisacodyl [Dulcolax (bisacodyl)] 5 mg tablet,delayed release (DR/EC) 5 mg PO ONCE Qty: 4 RF: 0 Discharge Instructions Additional Instructions: Findings: diverticula- mostly in the sigmoid, but also throughout the entirety of the colon Follow up: 2 wks to review Bx results and formulate teatment plan. Please call if you develop: fevers >101.5 Nausea or Vomiting Abdominal pain that is not transient DAY SURGERY UNIT POST COLONOSCOPY INSTRUCTIONS 1. Because there will be medication in your system for the next 24 hours, you may feel a little sleepy. Your coordination will be affected. Therefore: a. Do not drive or operate dangerous equipment for 24 hours. b. Do not drink alcohol beverages for 24 hours (not even beer). c. Plan to go home and rest for the day. 2. Generally there are no restrictions on your activity after a day or so has gone by, but you may feel a bit fatigued for a few days. 3 After you arrive home you may have a light meal and return to a normal diet as you can tolerate it without feeling sick to your stomach. 4. After surgery, you may feel pain or discomfort. This should be only transient, but if it persists please contact your doctor. 5. If there are any questions regarding the findings of your procedure, please feel free to contact your doctor. 6. If you are unable to contact your doctor with a problem, contact the hospital at [phone]. 7. Continue all your regular medications unless directed otherwise. I understand the above instructions and have no questions. Signature of Patient or Responsible Adult Escort Date/Time Name of Responsible Adult Escort Signature of Nurse Date/Time Activity:: no liting over 20#'s or strenuous activity x 24 hrs Diet:: small light meals x 24 hrs Discharge Orders Discharge Orders: Discharge Order (Routine); Ordered 07/25/20 Ordered By: Rosa Crabtree DS: Diagnosis Discharge Diagnosis (1) Anemia due to blood loss, acute: Status: Acute (2) Rectal bleeding: Status: Acute (3) BPH loc w urin obs/LUTS: Status: Acute (4) Tobacco use: Status: None (5) HTN (hypertension): Status: Chronic (6) Diverticulosis of colon with hemorrhage: Status: Acute (7) Acute GI bleeding: Status: Acute
[2020-07-25 13:48] VITALS: BP 133/101; PULSE 85; RESP 16; TEMP 36.3; O2SAT 99
[2020-07-25 14:41] LABS: HCT 49.7 % (40.0-50.0); HGB 16.4 g/dL (13.5-17.5)
[2020-07-25 15:04] LABS: C-Reactive Protein 0.35 mg/dL (0.0-0.3); TSH 0.47 uIU/mL (0.36-3.74)
[2020-07-25 15:33] LABS: Ferritin 41 ng/mL (26-388)
[2020-07-25 16:37] LABS: Iron 104 ug/dL (65-175); Total Iron Binding Capacity 359 ug/dL (250-450); Transferrin Sat 29 % (20-55)
--- NOTE | 2020-07-25 19:10 | W.COLOREPORT ---
Date of service: 07/25/20 Time of Service: 12:30 Colonoscopy Report Date of procedure: 07/25/20 Pre-op diagnosis general: anemia/rectal bleeding/LLQ pain Post-op diagnosis procedure note: other (diverticula & induration/erthyma from 30-50cm) Surgeon: Rosa Crabtree Anesthesia Type: General:No Airway Pathology: other Complications: None Disposition: same day Prep: Miralax/Dulcolax Retraction Time: 10 Procedure Description: After informed consent was obtained the patient was taken to the procedure room and placed in a left decubitous position. Monitors were applied and a time out was done. The patients name, date of , procedure, allergies to medications and metal in their body was reviewed. The patient was then sedated. Once sedated and comfortable a rectal exam was done. External exam was normal. Internal exam revealed a normal sphincter tone and no palpable masses. The scope was then introduced and retrofelexed. No internal hemorrhoids were identified. The scope was then advanced to the cecum w/out difficulty. The TI and appendiceal orifice were identified. The prep was good. The scope was then slowly retracted over 10 minutes back into the rectum. From 50-30cm, the colon show erythema/edema & friability. There is definitely narrowing due to the changes in the bowel wall. The colon is otherwise normal. There are moderate diverticula Dx in the sigmoid colon. There are lg mouthed diverticula throughout the entire colon, but the majority are confined to the sigmoid colon. In the rectosigmoid colon, the mucosa is pink and healthy. There is no signs of any infection or inflammation in this area. The edema and erythema is confined to 30 to 50 cm but below 30 cm the colon appears normal. There is a polyp that 30 cm well. But this appears to be more of an inflammatory polyp rather than an adenomatous polyp. This is removed with a cold biting forcep. It is 5 cm in size. Biopsies are taken between 30 and 50 cm as well. All specimens are retrieved and no bleeding is noted. Bx are taken. Polyps were removed at 30. The scope was removed and the patient was woken up and taken back to Same day surgery in stable condition. The patient tolerated the procedure well and there were no immediate complications. Follow up: The patient should follow up in 2-5-years unless they develop changes in bowel habits or other new gastrointestinal complaints, and this depends on what biopsies of the colon show.
[2020-07-26 14:55] LABS: ANA Interpretation Negative (Negative)
[2020-07-28 12:11] LABS: c-ANCA Negative (Negative); p-ANCA Negative (Negative)
== END 2020-07-25 14:55 | disposition home or self-care (01) ==
PROVIDERS: PCP Internal Medicine; Visit Provider Surgery
PROC: 0DJD8ZZ Inspection of Lower Intestinal Tract, Via Natural or Artificial Opening Endoscopic (ICD-10-PCS; CPT 45378; principal; 2020-07-25 12:15)
DX: D62 Acute posthemorrhagic anemia (principal); K62.5 Hemorrhage of anus and rectum; R10.32 Left lower quadrant pain; K52.89 Other specified noninfective gastroenteritis and colitis; K57.30 Diverticulosis of large intestine without perforation or abscess without bleeding; K63.89 Other specified diseases of intestine; I10 Essential (primary) hypertension
CPT/HCPCS: 45380; 88305; 99221; 82728; 83540; 83550; 84443; 85014; 85018; 86038; 86140; 86255; J2001

== ENCOUNTER 2020-08-04 13:23 | Outpatient (REF) | payer MEDICARE, BC, SELFPAY ==
[2020-08-04 20:58] LABS: BUN 16 mg/dL (7-18); CREATININE 1.2 mg/dL (0.70-1.30); Calcium 9.5 mg/dL (8.5-10.1); Chloride 103 mmol/L (98-107); Glucose 93 mg/dL (74-106); Potassium 4.7 mmol/L (3.5-5.1); Sodium 139 mmol/L (136-145)
== END 2020-08-04 13:24 | disposition home or self-care (01) ==
LOC: NCHCN 13:23
PROVIDERS: PCP Internal Medicine; Visit Provider Internal Medicine
DX: I10 Essential (primary) hypertension (principal)
CPT/HCPCS: 80048

== ENCOUNTER → 2020-08-10 09:57 | Outpatient (BNVA) | payer MEDICARE, BC, SELFPAY | PROVIDERS: PCP Internal Medicine; Referring Provider Internal Medicine; Visit Provider Surgery | DX: Z48.815 Encounter for surgical aftercare following surgery on the digestive system (principal); K52.89 Other specified noninfective gastroenteritis and colitis | CPT/HCPCS: 99213; 99214 ==

== ENCOUNTER 2021-08-29 13:15 | Outpatient (REF) | payer MEDICARE, BC, SELFPAY ==
[2021-08-29 15:01] LABS: Abs Immature Grans 0.04 10^3/uL (0.0-0.06); Absolute Basophil Count 0.05 10^3/uL (0.0-0.2); Absolute Eosinophil Count 0.07 10^3/uL (0.0-0.7); Absolute Lymphocyte Count 1.52 10^3/uL (1.2-3.4); Absolute Monocyte Count 0.94 10^3/uL (0.1-0.8); Absolute Neutrophil Count 7.22 10^3/uL (1.2-6.7); Basophils % 0.5; Eosinophils % 0.7; HCT 48.4 % (40.0-50.0); HGB 15.8 g/dL (13.5-17.5); Immature Grans % 0.4; Lymphocytes % 15.4; MCH 30.4 pg (27.0-33.0); MCHC 32.6 % (32.0-36.0); MCV 93 fL (80-95); MPV 9.7 fL (8.0-11.0); Monocytes % 9.6; Neutrophils % 73.4; Platelet Count 321 10^3/uL (130-400); RDW-SD 44.6 fL; WBC 9.84 10^3/uL (4.4-10.8)
[2021-08-29 15:08] LABS: ESR 24 mm/hr (0-20)
[2021-08-29 15:29] LABS: ALT 21 U/L (16-63); AST 20 U/L (15-37); Alkaline Phosphatase 62 U/L (46-116); Anion Gap 7.3 mmol/L (3-11); BUN 10 mg/dL (7-18); Bilirubin, Total 0.6 mg/dL (0.2-1.0); CO2 28.7 mmol/L (21.0-32.0); CREATININE 0.6 mg/dL (0.70-1.30); Calcium 9.4 mg/dL (8.5-10.1); Chloride 103 mmol/L (98-107); Glucose 95 mg/dL (74-106); Potassium 4.9 mmol/L (3.5-5.1); Sodium 139 mmol/L (136-145); Total Protein 7.7 g/dL (6.4-8.2)
== END 2021-08-29 13:16 | disposition home or self-care (01) ==
LOC: NCHCN 13:15
PROVIDERS: PCP Internal Medicine; Visit Provider Family Medicine
DX: K58.9 Irritable bowel syndrome, unspecified (principal); R70.0 Elevated erythrocyte sedimentation rate
CPT/HCPCS: 80053; 85652; 85025

== ENCOUNTER 2021-10-01 15:18 | Outpatient (REF) | payer MEDICARE, BC, SELFPAY ==
[2021-10-01 21:18] LABS: Anion Gap 9.9 mmol/L (3-11); BUN 13 mg/dL (7-18); CO2 27.1 mmol/L (21.0-32.0); CREATININE 1.1 mg/dL (0.70-1.30); Chloride 105 mmol/L (98-107); Glucose 98 mg/dL (74-106); Potassium 4.8 mmol/L (3.5-5.1); Sodium 142 mmol/L (136-145)
[2021-10-03 12:02] LABS: Hepatitis C Ab w Rflx HCV PCR Negative (Negative)
[2021-10-03 12:03] LABS: HIV-1/2 Ag & Ab Screen Negative (Negative)
== END 2021-10-01 15:19 | disposition home or self-care (01) ==
LOC: NCHCN 15:18
PROVIDERS: PCP Internal Medicine; Visit Provider Family Medicine
DX: I10 Essential (primary) hypertension (principal); Z11.4 Encounter for screening for human immunodeficiency virus [HIV]; Z11.59 Encounter for screening for other viral diseases
CPT/HCPCS: 80048; 86803; 87389

== ENCOUNTER 2022-03-29 13:17 | Outpatient (REF) | payer MEDICARE, BC, SELFPAY ==
[2022-03-29 14:51] LABS: Anion Gap 7.3 mmol/L (3-11); BUN 15 mg/dL (7-18); CO2 30.7 mmol/L (21.0-32.0); CREATININE 1.2 mg/dL (0.70-1.30); Calcium 9.6 mg/dL (8.5-10.1); Calculated LDL 179 mg/dL (<100); Chloride 103 mmol/L (98-107); Cholesterol 244 mg/dL (<200); Estimated GFR 66.28 (mL/min/1.73m2); Glucose 100 mg/dL (74-106); HDL Cholesterol 49 mg/dL (40-60); Potassium 5.5 mmol/L (3.5-5.1); Sodium 141 mmol/L (136-145); Triglyceride 83 mg/dL (<150)
== END 2022-03-29 13:18 | disposition home or self-care (01) ==
LOC: NCHCN 13:17
PROVIDERS: PCP Internal Medicine; Visit Provider Family Medicine
DX: I10 Essential (primary) hypertension (principal); E78.5 Hyperlipidemia, unspecified
CPT/HCPCS: 80048; 80061

== ENCOUNTER 2022-04-03 18:03 | Outpatient (REF) | payer MEDICARE, BC, SELFPAY ==
[2022-04-03 14:30] LABS: HCT 52.6 % (40.0-50.0); HGB 17.5 g/dL (13.5-17.5); MCH 29.9 pg (27.0-33.0); MCHC 33.3 % (32.0-36.0); MCV 90 fL (80-95); MPV 9.8 fL (8.0-11.0); Platelet Count 331 10^3/uL (130-400); RBC 5.85 10^6/uL (4.36-5.78); RDW 13.3 % (11.8-14.1); RDW-SD 44.6 fL; WBC 9.98 10^3/uL (4.4-10.8)
[2022-04-03 14:53] LABS: Potassium 4.7 mmol/L (3.5-5.1); TSH (W/Ref FT4) 0.84 uIU/mL (0.36-3.74)
== END 2022-04-03 18:04 | disposition home or self-care (01) ==
LOC: NCHCN 18:03
PROVIDERS: PCP Internal Medicine; Visit Provider Family Medicine
DX: I10 Essential (primary) hypertension (principal); E27.8 Other specified disorders of adrenal gland; Z00.00 Encounter for general adult medical examination without abnormal findings
CPT/HCPCS: 85027; 84132; 84443

== ENCOUNTER 2022-05-08 13:26 | Outpatient (REF) | payer MEDICARE, BC, SELFPAY | END 2022-05-08 13:27 | disposition home or self-care (01) | LOC: LBN 13:26 | PROVIDERS: PCP Internal Medicine; Visit Provider Internal Medicine Gastroenterology | DX: K92.2 Gastrointestinal hemorrhage, unspecified (principal) | CPT/HCPCS: 83630 ==

== ENCOUNTER 2022-10-28 13:03 | Outpatient (REF) | payer MEDICARE, BC, SELFPAY ==
[2022-10-28 15:34] LABS: ALT 21 U/L (16-63); AST 17 U/L (15-37); Albumin 3.7 g/dL (3.4-5.0); Alkaline Phosphatase 73 U/L (46-116); Anion Gap 8.3 mmol/L (3-11); BUN 12 mg/dL (7-18); Bilirubin, Total 0.5 mg/dL (0.2-1.0); CO2 29.7 mmol/L (21.0-32.0); CREATININE 1.1 mg/dL (0.70-1.30); Calcium 9.4 mg/dL (8.5-10.1); Calculated LDL 78 mg/dL (<100); Chloride 104 mmol/L (98-107); Cholesterol 138 mg/dL (<200); Estimated GFR 73.58 (mL/min/1.73m2); Glucose 94 mg/dL (74-106); HDL Cholesterol 43 mg/dL (40-60); Potassium 5.3 mmol/L (3.5-5.1); Sodium 142 mmol/L (136-145); Total Protein 7.7 g/dL (6.4-8.2); Triglyceride 86 mg/dL (<150)
== END 2022-10-28 13:04 | disposition home or self-care (01) ==
LOC: NCHCN 13:03
PROVIDERS: PCP Internal Medicine; Visit Provider Family Medicine
DX: Z00.00 Encounter for general adult medical examination without abnormal findings (principal); E78.5 Hyperlipidemia, unspecified; I10 Essential (primary) hypertension
CPT/HCPCS: 80053; 80061

== ENCOUNTER 2024-05-10 17:18 | Outpatient (REF) | payer MEDICARE, BC, SELFPAY ==
[2024-05-10 21:06] LABS: Abs Immature Grans 0.04 10^3/uL (0.0-0.06); Absolute Basophil Count 0.06 10^3/uL (0.0-0.2); Absolute Eosinophil Count 0.08 10^3/uL (0.0-0.7); Absolute Lymphocyte Count 1.34 10^3/uL (1.2-3.4); Absolute Monocyte Count 0.94 10^3/uL (0.1-0.8); Absolute Neutrophil Count 8.35 10^3/uL (1.2-6.7); Basophils % 0.6 %; Eosinophils % 0.7 %; HCT 55.1 % (40.0-50.0); HGB 18.2 g/dL (13.5-17.5); Immature Grans % 0.4 %; Lymphocytes % 12.4 %; MCH 30.9 pg (27.0-33.0); MCV 94 fL (80-95); MPV 9.7 fL (8.0-11.0); Monocytes % 8.7 %; Neutrophils % 77.2 %; Platelet Count 299 10^3/uL (130-400); RBC 5.89 10^6/uL (4.36-5.78); RDW 12.7 % (11.8-14.1); RDW-SD 43.8 fL; WBC 10.81 10^3/uL (4.4-10.8)
[2024-05-10 21:30] LABS: ALT 20 U/L (16-63); AST 17 U/L (15-37); Albumin 4.1 g/dL (3.4-5.0); Alkaline Phosphatase 76 U/L (46-116); Anion Gap 8.6 mmol/L (3-11); BUN 14 mg/dL (7-18); Bilirubin, Total 0.95 mg/dL (0.2-1.0); CO2 30.4 mmol/L (21.0-32.0); CREATININE 1.2 mg/dL (0.70-1.30); Calcium 9.8 mg/dL (8.5-10.1); Calculated LDL 189 mg/dL (<100); Chloride 102 mmol/L (98-107); Cholesterol 258 mg/dL (<200); Estimated GFR 65.46 (mL/min/1.73m2); Glucose 99 mg/dL (74-106); HDL Cholesterol 44 mg/dL (40-60); Potassium 4.4 mmol/L (3.5-5.1); Sodium 141 mmol/L (136-145); TSH (W/Ref FT4) 0.79 uIU/mL (0.36-3.74); Total Protein 8.2 g/dL (6.4-8.2); Triglyceride 128 mg/dL (<150)
[2024-05-11 18:37] LABS: PSA, Diagnostic 2.4 ng/mL (<=4.5)
[2024-05-17 14:17] LABS: Testosterone, Free 12.2 ng/dL (3.47-13.0); Testosterone, Total 369 ng/dL (240-950)
== END 2024-05-10 17:19 | disposition home or self-care (01) ==
LOC: NCHCN 17:18
PROVIDERS: PCP Internal Medicine; Visit Provider Family Medicine
DX: I10 Essential (primary) hypertension (principal); N40.1 Benign prostatic hyperplasia with lower urinary tract symptoms
CPT/HCPCS: 80053; 80061; 84402; 84403; 84153; 84443; 85025

== ENCOUNTER 2025-04-14 13:39 | Emergency (ER) | payer MEDICARE, BC, SELFPAY ==
--- NOTE | 2025-04-14 13:30 | RT.EKG_ITS ---
APPROVED REPORT Exam: Resting ECG Reason for Exam: Rapid Heart Rate Patient Location: E HR:101 bpm ECG Measurements Heart Rate 101 AXIS DE 144 P 54 QRSd 96 QRS -40 QT 338 T 47 QTc 438 Conclusion Sinus tachycardia...rate> 99 Left axis deviation...QRS axis (-30,-90) Sinus Tach at 101 Normal Interval and [place] NS ST depression throughout There are no significant changes compared to prior EKG performed on 05/31/2020 at 00:54.
[2025-04-14 13:41] VITALS: BP 183/101; PULSE 101; RESP 22; TEMP 36.2; O2SAT 97
--- NOTE | 2025-04-14 13:50 | W.EDPROG ---
Date of service: 04/14/25 Time of Service: 13:50 Medical Decision Making This patient arrives on my shift. Is a 70-year-old male endorses a month long history of fatigue and irregular heart rate. He is speaking in complete sentences in no acute distress. Twelve-lead ECG was being completed. He is afebrile hypertensive to 183/101. ECG showing sinus tachycardia rate of 101. Left axis deviation no signs of LVH. No ST segment abnormalities. No acute injury pattern. Discharge Plan Discharge Details Chief Complaint: Arrhythmia Primary Care Provider: Puma Smallwood ED Provider: Provider,Temporary Home Meds and New Rx's Prescriptions: No Action magnesium 200 mg tablet 500 mg PO DAILY Fish Oil 100-160-1,000 mg Capsule 1 cap PO DAILY Glucosamine Chondroitin 550-30-1 mg Capsule 1 cap PO DAILY amlodipine 10 mg Tablet 10 mg PO DAILY spironolactone 50 mg Tablet 50 mg PO DAILY cholecalciferol (vitamin D3) [Vitamin D3] 25 mcg (1,000 unit) Capsule 25 mcg PO DAILY Metamucil (sugar) Powder 1 tsp PO BID zinc 50 mg Capsule 50 mg PO DAILY
--- NOTE | 2025-04-14 14:06 | W.ED.GENAD ---
Discharge Plan Disposition Patient Disposition: Home Condition: Good Discharge Details Clinical Impression: Palpitations, UTI (urinary tract infection) Primary Care Provider: Puma Smallwood ED Provider: Taz Damon Home Meds and New Rx's Prescriptions: New nitrofurantoin monohyd/m-cryst [Macrobid] 100 mg capsule 100 mg PO Q12H 5 Days Qty: 10 0RF Rx Instructions: must administer with a meal/food Continued Fish Oil 100-160-1,000 mg Capsule 1 cap PO DAILY Glucosamine Chondroitin 550-30-1 mg Capsule 1 cap PO DAILY cholecalciferol (vitamin D3) [Vitamin D3] 25 mcg (1,000 unit) Capsule 25 mcg PO DAILY Metamucil (sugar) Powder 1 tsp PO BID zinc 50 mg Capsule 50 mg PO DAILY losartan 50 mg tablet 50 mg PO DAILY magnesium glycinate 120 mg capsule 120 mg PO DAILY black seed 4.5 gram/5 mL oil 1 g PO DAILY vitamin B complex Tablet 1 tab PO DAILY turmeric 400 mg capsule 1,500 mg PO DAILY Discharge Instructions Instructions: Palpitations ED Additional Instructions: You were seen for palpitations, fatigue, weakness. Your exam, EKG, chest x-ray, laboratory studies overall are very reassuring. You do have evidence of a urinary tract infection for which an antibiotic has been sent to your pharmacy for you to begin taking. You should follow-up with primary care for further evaluation of your symptoms. Return to ED for any chest pain, increasing shortness of breath, fainting, neurologic change, other concerns. Stand Alone Forms: Portal Information Referrals: [facility] [Provider Group] [facility] General Mode of arrival: ambulatory. Date/Time Provider Initiated Documentation: 04/14/25 13:50. Limitations to Documentation: no limitations. Information obtained by: patient, family and RN notes reviewed. HPI Narrative: Patient presents to the ED with complaint of palpitations, fatigue, weakness, occasional lightheadedness and shortness of breath with bending over or getting up. He denies any syncope. He denies any type of chest pain or pressure. Symptoms have been ongoing for at least a couple of months but seem to be more frequent now. States that he feels like his heart is skipping beats. He did not get short of breath with exertion but tires out. Describes feeling short of breath when he is trying to bend over to tie his shoes or put on his socks. Denies any fevers or cough. Denies any abdominal pain, vomiting, diarrhea. No black or dark stool. Takes his blood pressure medication fairly regularly. Does not take any other medications but does take supplements. Denies any neurologic change. Related Data Home Medications ?Medication ?Instructions ?Recorded ?Confirmed cholecalciferol (vitamin D3) 25 25 mcg PO DAILY 07/24/20 04/14/25 mcg (1,000 unit) capsule (Vitamin D3) glucosamine sulf dipot 1 cap PO DAILY 07/24/20 04/14/25 chlr,msm,chond 550 mg-C 30 mg-meño 1 mg capsule (Glucosamine Chondroitin) omega 3-teb-kru-fish oil 100 1 cap PO DAILY 07/24/20 04/14/25 mg-160 mg-1,000 mg capsule (Fish Oil) psyllium seed (sugar) oral powder 1 tsp PO BID 07/24/20 04/14/25 (Metamucil (sugar) oral powder) zinc 50 mg capsule 50 mg PO DAILY 07/24/20 04/14/25 black seed 4.5 gram/5 mL oral oil 1 g PO DAILY 04/14/25 04/14/25 losartan 50 mg tablet 50 mg PO DAILY 04/14/25 04/14/25 magnesium glycinate 120 mg (as 120 mg PO DAILY 04/14/25 04/14/25 glycinate) capsule nitrofurantoin 100 mg PO Q12H 5 days #10 [facility] 04/14/25 monohydrate/macrocrystals 100 mg capsule (Macrobid) turmeric 400 mg capsule 1,500 mg PO DAILY 04/14/25 04/14/25 vitamin B complex 1 tab PO DAILY 04/14/25 04/14/25 Previous Rx's ?Medication ?Instructions ?Recorded nitrofurantoin 100 mg PO Q12H 5 days #10 caps 04/14/25 monohydrate/macrocrystals 100 mg capsule (Macrobid) Allergies Allergy/AdvReac Type Severity Reaction Status Date / Time codeine AdvReac Mild headache Verified 04/14/25 14:37 General Stated Complaint: Arrhythmia CHACHA: 2 Exam Narrative Exam Narrative: Const: WDWN elderly male in NAD. VS per triage. HEENT: NC/AT. Normal facial exam. Neck: Supple. Trachea midline. Lungs: Normal respiratory effort. Lungs are clear. Cor: RRR without murmur. Good radial pulses. GI: Soft/ND/NT. Neuro: A+O x 3. Normal speech, mentation, gait. Cranial nerves II - XII grossly intact. No gross motor or sensory deficit. Ext: No C/C/E. No calf tenderness. Course Vital Signs Vital signs: Vital Signs Temperature 97.2 F L 04/14/25 13:41 Pulse 101 H 04/14/25 13:41 Respiratory Rate 22 04/14/25 13:41 Blood Pressure 183/101 H 04/14/25 13:41 Pulse Oximetry 97 04/14/25 13:41 Temperature 97.2 F L 04/14/25 13:41 Temperature Source Tympanic 04/14/25 13:41 Pulse 101 H 04/14/25 13:41 Respiratory Rate 22 04/14/25 13:41 Blood Pressure 183/101 H 04/14/25 13:41 Blood Pressure Position Supine 04/14/25 13:41 Pulse Oximetry 97 04/14/25 13:41 Oxygen Delivery Method Room Air 04/14/25 13:41 Oxygen Flow Rate 0 04/14/25 13:41 Pain Level 0 04/14/25 13:41 Medical Decision Making Patient presents to ED with palpitations, generalized weakness and fatigue, occasional lightheadedness and shortness of breath. This has been ongoing for at least a couple of months. He has not seen primary care. Denies any GI bleed which he has history of. His exam is reassuring. His EKG is sinus tachycardia at [address] changes and unchanged from EKG done in 2020. He is not having any chest pain or pressure or exertional symptoms to suggest angina. Shortness of breath he reports is after bending over to pick something up or tie his shoes. We will need blood work. Will check orthostatics and urinalysis. Will maintain on the monitor while here to catch any potential arrhythmias. 15:45 - Patient is not orthostatic, heart rate only goes up 10 points. BP goes up not down. Labs are reassuring with a white count of 10.8, hemoglobin 16.8. Chemistries and kidney function are normal. Liver function normal. TSH with reflex, urinalysis pending. Chest x-ray ordered given complaint of shortness of breath while bending over the lungs are clear and saturations are normal. 16:45 - Patient's urine does appear infected and while not likely the cause of his symptoms, we will treat with antibiotics. CXR per my read with no acute process. TSH just a little low, T4 pending but can be followed up outpatient. He will need to contact PCP as I do feel he would benefit from further evaluation to include ECHO and Ziopatch. Discussed cutting back on caffeine consumption. Return precautions provided. Medical Records Medical records reviewed: Yes I reviewed the patient's medical records. Medical records narrative: previous admit for GI Bleed Imaging Data Radiologic Study: Attestation: I personally reviewed and interpreted this imaging study as follows: Imaging: X-Ray My impression: see [facility] Lab Data Lab results reviewed: Yes I reviewed the patient's lab results. Lab results narrative: see [facility] ECG Data Attestation: I personally reviewed and interpreted this ECG (s) as follows: Prior ECG tracings: available for review Interpretation: see EKG/MDM PFSH All Active Problems (Updated 04/14/25 @ 16:56 by Taz Damon MD) UTI (urinary tract infection) (Acute) Palpitations (Acute) Diverticulosis of colon with hemorrhage (Acute) Enlarged prostate (Acute) Rectal bleeding (Acute) Medical History Hypercholesterolemia BPH (benign prostatic hyperplasia) Anemia Hypertension Surgical History History of colonoscopy with polypectomy (~07/25/20) Colonoscopy - IV Sedation (04/17/16) Social History Smoking/Tobacco Use Status: Former Tobacco Use Smoking risk assessment performed?: Yes Alcohol Intake: current Alcohol Intake frequency: holidays/special occasions only Alcohol type: beer and hard liquor Drug use: Never Substance use type: does not use Housing: house Do you feel safe at home: Yes Do you feel safe in your relationship?: Yes
[2025-04-14 14:51] VITALS: BP 158/87; BP 178/110; BP 192/107; PULSE 102; PULSE 88; PULSE 98
[2025-04-14 14:59] LABS: Lab Add On Test DONE
[2025-04-14 15:06] LABS: Magnesium 2.0 mg/dL (1.6-2.6)
[2025-04-14 15:08] LABS: ALT 13 U/L (10-49); AST 15 U/L (<34); Albumin 4.3 g/dL (3.2-5.0); Alkaline Phosphatase 66 U/L (46-116); Anion Gap 11 mmol/L (3-11); BUN 13 mg/dL (9-23); Bilirubin, Total 0.4 mg/dL (0.2-1.2); CO2 25.0 mmol/L (20.0-31.0); Calcium 9.1 mg/dL (8.3-10.6); Chloride 106 mmol/L (98-107); Glucose 108 mg/dL (74-106); Potassium 3.6 mmol/L (3.5-5.1); Sodium 142 mmol/L (136-145); Total Protein 7.6 g/dL (5.7-8.2)
[2025-04-14 15:10] LABS: TSH (W/Ref FT4) 0.52 uIU/mL (0.55-4.78)
--- NOTE | 2025-04-14 15:15 | DI.RAD_ITS ---
Exam(s) XR CHEST 2V PA LATERAL EXAM: XR CHEST 2V PA LATERAL CLINICAL HISTORY: SOB TECHNIQUE: 2D digital imaging was performed. Two views. COMPARISON: No exams were available for comparison FINDINGS: HEART: Normal size. Aorta: Not dilated. PULMONARY VASCULATURE: Normal. MEDIASTINUM: Unremarkable. LUNGS: Clear. PLEURAL SPACE: No pleural effusion or pneumothorax. BONE:Unremarkable for age. SOFT TISSUES: Unremarkable. IMPRESSION: No acute abnormality. DATA REPOSITORY: RADIATION DOSE DELIVERED:
[2025-04-14 15:17] LABS: Glucose Negative (Negative)
[2025-04-14 15:21] LABS: C & S Indicated? Yes
[2025-04-14 15:34] LABS: HCT 50.1 % (40.0-50.0); HGB 16.8 g/dL (13.5-17.5); MCH 30.3 pg (27.0-33.0); MCHC 33.5 % (32.0-36.0); MCV 90 fL (80-95); MPV 9.6 fL (8.0-11.0); Platelet Count 304 10^3/uL (130-400); RBC 5.54 10^6/uL (4.36-5.78); RDW 12.4 % (11.8-14.1); RDW-SD 41.2 fL; WBC 10.75 10^3/uL (4.4-10.8)
[2025-04-14 15:35] LABS: Abs Immature Grans 0.03 10^3/uL (0.0-0.06); Immature Grans % 0.3 %
[2025-04-14 17:13] VITALS: BP 164/107; PULSE 95; RESP 20; TEMP 36.6; O2SAT 96
== END 2025-04-14 17:15 | disposition home or self-care (01) ==
PROVIDERS: Emergency Provider Emergency Medicine; PCP Internal Medicine
DX: N39.0 Urinary tract infection, site not specified (principal); R00.2 Palpitations; R42 Dizziness and giddiness; R06.02 Shortness of breath
CPT/HCPCS: 99284 ×2; 00123; 80053; 93005; 71046; 81003; 81015; 83735; 84439; 84443; 85025; 87086; 93010